=== PATIENT | female | born 1985 | race Caucasian/White ===

== ENCOUNTER 2019-05-03 15:24 | Emergency (ER) | payer BC ==
--- OUTSIDE RECORDS SUMMARY | 2019-05-03 17:21 | XMS REPORT | Continuity of Care Document ---
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 Allergies, Adverse Reactions, Alerts Description No Known Drug Allergies Medications Active Medications SIG Qnty Indications Ordering Provider Date Pantoprazole Sodium 1 by mouth every Unknown 40mg day Solution Rec Ibuprofen 3 tabs by mouth Unknown 200mg Tablets in A.M and as needed History Medications Antibiotic (Unknown) taking 4 times Joseph Coombs DO 01/01/2019 - daily FACC 04/30/2019 Immunizations Description No Information Available Vital Signs Date Vital Result Comment 05/01/2019 10:13am Height 63 inches 5'3" Weight 204.00 lb Heart Rate 84 /min BP Systolic Sitting 116 mmHg LA Large Cuff BP Diastolic Sitting 76 mmHg LA Large Cuff BP Systolic Standing 106 mmHg LA Large Cuff BP Diastolic Standing 82 mmHg LA Large Cuff Respiratory Rate 20 /min Pain Level 0 O2 % BldC Oximetry 97 % BMI (Body Mass Index) 36.1 kg/m2 01/02/2019 9:27am Height 63 inches 5'3" Weight 205.38 lb no shoes Heart Rate 76 /min left radial BP Systolic Sitting 110 mmHg ule lg cuff BP Diastolic Sitting 80 mmHg ule lg cuff BP Systolic Standing 110 mmHg ule lg cuff BP Diastolic Standing 78 mmHg ule lg cuff BMI (Body Mass Index) 36.4 kg/m2 Results Test Acquired Date Facility Test Result H/L Range Note Basic Metabolic 01/16/2019 [facility] Sodium 138 mmol/L Normal 135-145 Panel [address] [place] [address] [phone] Potassium 4.6 mmol/L Normal 3.5-5.0 Chloride 104 mmol/L Normal 101-111 Co2 Carbon Dioxide 30 mmol/L Normal 22-32 Anion Gap 4 mmol/L Normal 2-11 Glucose 69 mg/dL Low 70-100 Blood Urea Nitrogen 12 mg/dL Normal 6-24 Creatinine 0.72 mg/dL Normal 0.51-0.95 BUN/Creatinine Ratio 16.7 Normal 8-20 Calcium 9.2 mg/dL Normal 8.6-10.3 Egfr Non- 93.3 >60 Egfr 112.9 >60 1 Laboratory test 01/16/2019 [facility] Magnesium 2.0 mg/dL Normal 1.9-2.7 [address] [place] [address] [phone] TSH (Thyroid Stim Horm) 1.19 mcIU/mL Normal 0.34-5.60 1 Because ethnic data is not always readily available, this report includes an eGFR for both -Americans and non- Americans. The National Kidney Disease Education Program (NKDEP) does not endorse the use of the MDRD equation for patients that are not between the ages of 18 and 70, are , have extremes of body size, muscle mass, or nutritional status, or are non- or non-. According to the National Kidney Foundation, irrespective of diagnosis, the stage of the disease is based on the level of kidney function: Stage Description GFR(mL/min/1.73 m(2)) 1 Kidney damage with normal or decreased GFR 90 2 Kidney damage with mild decrease in GFR 60-89 3 Moderate decrease in GFR 30-59 4 Severe decrease in GFR 15-29 5 Kidney failure <15 (or dialysis) Procedures Date Code Description Status 01/29/2019 73111 ECHO Transthoracic, Real-Time 2D With Doppler And Color Completed Flow 01/02/2019 42291 EKG Tracing & Interpretation Completed Medical Devices Description No Information Available Encounters Type Date Location Provider Dx Diagnosis Office Visit 01/02/2019 Cardiology Services Joseph Coombs, R00.2 Palpitations 9:40a [facility] [place] DO FACC R42 Dizziness and giddiness R06.02 Shortness of breath Assessments Date Code Description Provider 05/01/2019 I49.3 Ventricular premature depolarization Joseph Coombs, DO FACC 01/29/2019 R06.02 Shortness of breath Joseph Coombs, DO FAC 01/29/2019 R06.02 Shortness of breath Traveling ECHO 2 01/02/2019 R00.2 Palpitations Joseph Coombs, DO FAC 01/02/2019 R42 Dizziness and giddiness Joseph Coombs, DO FAC 01/02/2019 R06.02 Shortness of breath Joseph Coombs, DO [facility] Plan of Treatment Future Appointment(s):06/24/2019 10:00 am - Melchor Lai M.D. at [place] [facility]05/01/2019 - Joseph Coombs, DO FACCI49.3 Ventricular premature depolarizationFollow up:PRN Functional Status Description No Information Available Mental Status Description No Information Available Referrals Description No Information Available
[2019-05-03 17:30] VITALS: BP 126/78
--- NOTE | 2019-05-03 17:46 | UC ---
Throat Pain/Nasal Alexis HPI - HPI Summary HPI Summary: 33-year-old female presents with complaints of one week history of sore throat with mild nasal congestion, postnasal drip, bilateral ear pain, and occasional nonproductive cough. Spouse has been sick with similar symptoms. Denies fever , chills, dysphagia, chest pain, shortness of breath, abdominal pain, nausea, vomiting, or diarrhea. - History of Current Complaint Chief Complaint: UCGeneralIllness Stated Complaint: SORE THROAT Time Seen by Provider: 05/03/19 17:14 Hx Obtained From: Patient Hx Last Menstrual Period: 05/03/18 Pain Intensity: 4 - Allergies/Home Medications Allergies/Adverse Reactions: Allergies Allergy/AdvReac Type Severity Reaction Status Date / Time No Known Allergies Allergy Verified 05/03/19 17:30 Home Medications: Home Medications Ibuprofen 600 mg PO DAILY 05/03/19 [History Confirmed 05/03/19] Pantoprazole Sodium [Protonix] 20 mg PO DAILY 05/03/19 [History Confirmed ] PMH/Surg Hx/FS Hx/Imm Hx Previously Healthy: Yes GI/ History: Gastroesophageal Reflux - Surgical History Surgical History: Yes Surgery Procedure, Year, and Place: C SECTION - Family History Known Family History: Positive: Non-Contributory - Social History Occupation: Employed Full-time Lives: With Family Alcohol Use: Rare Substance Use Type: None Smoking Status (MU): Never Smoked Tobacco Review of Systems All Other Systems Reviewed And Are Negative: Yes Constitutional: Negative: Fever, Chills Skin: Negative: Rash Eyes: Negative: Drainage, Eye Redness ENT: Positive: Sore Throat, Ear Ache, Nasal Discharge, Sinus Congestion. Negative: Sinus Pain/Tenderness Respiratory: Positive: Cough. Negative: Shortness Of Breath Cardiovascular: Negative: Palpitations, Chest Pain Gastrointestinal: Negative: Abdominal Pain, Vomiting, Diarrhea, Nausea Genitourinary: Positive: Negative Musculoskeletal: Positive: Negative Neurological: Positive: Negative Is Patient Immunocompromised?: No Physical Exam - Summary Physical Exam Summary: GENERAL APPEARANCE: Well developed, well nourished, alert and cooperative, and appears to be in no acute distress. EYES: Conjunctiva clear. No drainage. EARS: External auditory canals and tympanic membranes clear, hearing grossly intact. NOSE: Mild nasal congestion. No nasal discharge. THROAT: Pharyngeal erythema. No tonsilar inflammation, swelling, exudate, or lesions. Uvula midline. NECK: Neck supple, non-tender without lymphadenopathy. CARDIAC: Normal S1 and S2. No S3, S4 or murmurs. Rhythm is regular. There is no peripheral edema, cyanosis or pallor. Extremities are warm and well perfused. Capillary refill is less than 2 seconds. Peripheral pulses intact. LUNGS: Clear to auscultation without rales, rhonchi, wheezing or diminished breath sounds. ABDOMEN: Positive bowel sounds. Soft, nondistended, nontender. No guarding or rebound. No masses or hepatosplenomegally. MUSKULOSKELETAL: ROM intact to all extremities. No joint erythema or tenderness. Normal muscular development. Normal gait. SKIN: Skin normal color, texture and turgor with no lesions or eruptions. Triage Information Reviewed: Yes Vital Signs: Initial Vital Signs Temp 97.9 F 05/03/19 17: Pulse 95 05/03/19 17:27 Resp 16 05/03/19 17: BP 126/78 05/03/19 17: Pulse Ox 99 05/03/19 17:27 Vital Signs Reviewed: Yes Throat Pain/Nasal Course/Dx - Course Course Of Treatment: 33-year-old female presents with complaints of one week history of sore throat with mild nasal congestion, postnasal drip, bilateral ear pain, and occasional nonproductive cough. Spouse has been sick with similar symptoms. Denies fever , chills, dysphagia, chest pain, shortness of breath, abdominal pain, nausea, vomiting, or diarrhea. Afebrile. Vital signs stable. Patient had normal TMs, mild nasal congestion, mild pharyngeal erythema without tonsillar swelling or exudate, no cervical lymphadenopathy, clear bilateral breath sounds, and otherwise unremarkable exam. Rapid strep test was negative. Recommending symptomatic treatment for viral upper respiratory infection. She is to follow- up with her primary care provider in 3-5 days if symptoms are not getting better. Anticipatory guidance and warning symptoms reviewed with the patient. Places understanding and agrees with plan of care. - Differential Dx/Diagnosis Differential Diagnosis/HQI/PQRI: Mononucleosis, Pharyngitis, Tonsillitis, URI Provider Diagnosis: URI (upper respiratory infection) Discharge ED - Sign-Out/Discharge Documenting (check all that apply): Patient Departure All imaging exams completed and their final reports reviewed: No Studies - Discharge Plan Condition: Stable Disposition: HOME Patient Education Materials: Upper Respiratory Infection (ED) Referrals: Shaka Richey MD [Primary Care Provider] - 3 Days Additional Instructions: The rapid strep test performed in the clinic today was negative. Your history and exam are consistent with a viral upper respiratory infection. Viral infections do not respond to antibiotics and are limited to the treatment of symptoms. Drink plenty of fluids to avoid dehydration especially if you are running any fever. Use a saline rinse kit such as Neti Pot or NeilMed at least twice a day to help thin secretions and promote drainage of the sinuses. Use fluticasone (Flonase) nasal spray 2 sprays each nostril once daily. Take over the counter acetaminophen (Tylenol) or ibuprofen (Advil, Motrin) according to directions as needed for pain or fever. Use salt water gargles several times a day if you have a sore throat. You may also use Chloraseptic spray or Cepacol lonzenges according to directions which contain a numbing medication and can provide some temporary relief from your sore throat. Follow up with your primary care provider in 3-5 days if symptoms persist. Seek immediate medical attention in the emergency room if you have fever greater than 100.5 F despite taking acetaminophen or ibuprofen, have chest pain , difficulty breathing, are unable to swallow, or have any worsening of symptoms. - Billing Disposition and Condition Condition: STABLE Disposition: Home
== END 2019-05-03 18:20 | disposition home or self-care (01) ==
LOC: UCCORT 15:24
DX: J06.9 Acute upper respiratory infection, unspecified (principal); K21.9 Gastro-esophageal reflux disease without esophagitis; H92.03 Otalgia, bilateral; Z79.899 Other long term (current) drug therapy
CPT/HCPCS: 87651; 99211; G0463

== ENCOUNTER 2019-07-07 13:18 | Emergency (ER) | payer BC ==
--- OUTSIDE RECORDS SUMMARY | 2019-07-07 16:07 | XMS REPORT | Continuity of Care Document ---
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 Problems Description No Information Available Social History Type Date Description Comments Sex Unknown ETOH Use Occasionally consumes alcohol Recreational Drug Use Denies Drug Use Tobacco Use Start: Unknown Patient has never smoked Smoking Status Reviewed: 06/30/19 Patient has never smoked 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 Allergies, Adverse Reactions, Alerts Description No Known [...] Available Vital Signs Date Vital Result Comment 06/30/2019 9:42am Heart Rate 68 /min Respiratory Rate 16 /min Body Temperature 98.0 F 05/26/2019 10:24am Height 63 inches 5'3" Weight 204.00 lb Heart Rate 84 /min BP Systolic Sitting 124 mmHg BP Diastolic Sitting 80 mmHg Respiratory Rate 16 /min Body Temperature 97.9 F BMI (Body Mass Index) 36.1 kg/m2 Results Test Acquired Date Facility Test Result H/L Range Note Basic Metabolic 01/16/2019 [facility] Sodium 138 mmol/L Normal 135-[address] [place] [address] [phone] Potassium 4.6 mmol/L Normal 3.5-5.0 Chloride 104 mmol/L Normal 101-111 Co2 Carbon Dioxide 30 mmol/L Normal 22-32 Anion Gap 4 mmol/L Normal 2-11 Glucose 69 mg/dL Low 70-100 Blood Urea Nitrogen 12 mg/dL Normal 6-24 Creatinine 0.72 mg/dL Normal 0.51-0.95 BUN/Creatinine Ratio 16.7 Normal 8-20 Calcium 9.2 mg/dL Normal 8.6-10.3 Egfr Non- 93.3 >60 Egfr 112.9 >60 1 Laboratory test 01/16/2019 [facility] Magnesium 2.0 mg/dL Normal 1.9-2.[address] [place] [address] [phone] TSH (Thyroid Stim Horm) 1.19 mcIU/mL Normal [...] dialysis) Procedures Date Code Description Status 01/29/2019 23307 ECHO Transthoracic, Real-Time 2D With Doppler And Color Completed Flow 01/02/2019 72282 EKG Tracing & Interpretation Completed Medical Devices Description No Information Available Encounters Type Date Location Provider Dx Diagnosis Office Visit 05/26/2019 Surgical Karis Patel MD K42.9 Umbilical hernia 10:00a [facility] without obstruction or gangrene Office Visit 05/01/2019 Cardiology Joseph Ayala49.3 Ventricular premature 10:40a [facility] Office Visit 01/02/2019 Cardiology Joseph lBack R00.2 Palpitations 9:40a [facility] R42 Dizziness and giddiness R06.02 Shortness of breath Assessments Date Code Description Provider 06/30/2019 K42.9 Umbilical hernia without obstruction or Karis Patel MD gangrene 05/26/2019 K42.9 Umbilical hernia without obstruction or Karis Patel MD gangrene 05/01/2019 I49.3 Ventricular premature depolarization Josephdisha Grecono, DO [facility] 01/29/2019 R06.02 Shortness of breath Joseph Coombs, DO [facility] 01/29/2019 R06.02 Shortness of breath Traveling ECHO 2 01/02/2019 R00.2 Palpitations Josephdisha Grecono, DO [facility] 01/02/2019 R42 Dizziness and giddiness Josephdisha Coombs, DO [facility] 01/02/2019 R06.02 Shortness of breath Joseph Coombs, DO [facility] Plan of Treatment Future Appointment(s):09/23/2019 10:00 am - Karis Patel MD at [facility]09/10/2019 7:30 am - Karis Patel MD at [facility]08/26/2019 8:30 am - Karis Patel MD at [facility]09/02/2019 9:00 am - Melchor Lai M.D. at [place]2019 - Karis Patel MDK42.9 Umbilical hernia without obstruction or gangrene Functional Status Description No Information Available Mental Status Description No Information Available Referrals Description No Information Available
--- OUTSIDE RECORDS SUMMARY | 2019-07-07 16:07 | XMS REPORT | Continuity of Care Document ---
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 No Information Available Social History Type Date Description Comments Sex Unknown ETOH Use Occasionally consumes alcohol Recreational Drug Use Denies Drug Use Tobacco Use Start: Unknown Patient has never smoked Smoking Status Reviewed: 06/30/19 Patient has never smoked 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 Allergies, Adverse Reactions, Alerts Description No Known Drug Allergies Medications Active Medications SIG Qnty Indications Ordering Provider Date Pantoprazole Sodium 1 by mouth every Unknown 40mg day Solution Rec Ibuprofen 3 tabs by mouth Unknown 200mg Tablets in A.M and as needed Immunizations Description No Information Available Vital Signs [...] Result H/L Range Note Basic Metabolic 01/16/2019 [facility] Sodium 138 mmol/L Normal 135-[address] [place] [address] [phone] Potassium 4.6 mmol/L Normal 3.5-5.0 Chloride 104 mmol/L Normal 101-111 Co2 Carbon Dioxide 30 mmol/L Normal 22-32 Anion Gap 4 mmol/L Normal 2-11 Glucose 69 mg/dL Low 70-100 Blood Urea Nitrogen 12 mg/dL Normal 6-24 Creatinine 0.72 mg/dL Normal 0.51-0.95 BUN/Creatinine Ratio 16.7 Normal 8-20 Calcium 9.2 mg/dL Normal 8.6-10.3 Egfr Non- 93.3 >60 Egfr 112.9 >60 1 Laboratory test 01/16/2019 [facility] Magnesium 2.0 mg/dL Normal 1.9-2.[address] [place] [address] [phone] TSH (Thyroid Stim Horm) 1.19 mcIU/mL Normal [...] dialysis) Procedures Date Code Description Status 01/29/2019 49796 ECHO Transthoracic, Real-Time 2D With Doppler And Color Completed Flow 01/02/2019 59779 EKG Tracing & Interpretation Completed Medical Devices Description No Information Available Encounters Type Date Location Provider Dx Diagnosis Office Visit 06/30/2019 Surgical Karis Patel MD K42.9 Umbilical hernia 9:30a [facility] without obstruction or gangrene Office Visit 05/26/2019 Surgical Karis Patel MD K42.9 Umbilical hernia 10:00a [facility] without obstruction or gangrene Office Visit 05/01/2019 Cardiology Joseph Ayala49.3 Ventricular premature 10:40a [facility] Office Visit 01/02/2019 Cardiology Joseph Black R00.2 Palpitations 9:40a [facility] R42 Dizziness and giddiness R06.02 Shortness of breath Assessments Date Code Description Provider 06/30/2019 K42.9 Umbilical hernia without obstruction or Karis Patel MD gangrene 05/26/2019 K42.9 Umbilical hernia without obstruction or Karis Patel MD gangrene 05/01/2019 I49.3 Ventricular premature depolarization Joseph Coombs, DO [facility] 01/29/2019 R06.02 Shortness of breath Joseph Coombs, DO [facility] 01/29/2019 R06.02 Shortness of breath Traveling ECHO 2 01/02/2019 R00.2 Palpitations Joseph Coombs, DO [facility] 01/02/2019 R42 Dizziness and giddiness Joseph Coombs, DO [facility] 01/02/2019 R06.02 Shortness of breath Joseph SArmand Coombs, [facility] Plan of Treatment Future Appointment(s):09/23/2019 10:00 am - Karis Patel MD at [facility]09/10/2019 7:30 am - Karis Patel MD at [facility]08/26/2019 8:30 am - Karis Patel MD at [facility]09/02/2019 9:00 am - Melchor Lai M.D. at [place] [facility]2019 - Karis Patel MDK42.9 Umbilical hernia without obstruction or gangreneFollow up:We will see you for surgery in August. Please feel free to see me sooner as needed. Functional Status Description No Information Available Mental Status Description No Information Available Referrals Description No Information Available
[2019-07-07 16:16] VITALS: BP 120/68
--- NOTE | 2019-07-07 16:20 | UC ---
Ear Complaint HPI - HPI Summary HPI Summary: 33-year-old female presents with 2 week history of bilateral ear pain and fullness. States left ears worse than right. Reports occasional brief dizziness when pain is at its worst. States today she has started losing her voice. Denies fever, chills, nasal congestion, ear drainage, tinnitus, hearing loss, sore throat, or cough. - History of Current Complaint Chief Complaint: UCEar Stated Complaint: EAR PAIN Time Seen by Provider: 07/07/19 16:17 Hx Obtained From: Patient Hx Last Menstrual Period: 07/02/19 Pain Intensity: 3 - Allergies/Home Medications Allergies/Adverse Reactions: Allergies Allergy/AdvReac Type Severity Reaction Status Date / Time No Known Allergies Allergy Verified 07/07/19 16:16 Home Medications: Home Medications Ibuprofen 600 mg PO DAILY 05/03/19 [History Confirmed 07/07/19] Pantoprazole Sodium [Protonix] 20 mg PO DAILY 05/03/19 [History Confirmed ] Fluticasone NASAL SPRAY 50MCG* [Flonase NASAL SPRAY 50MCG*] 2 spray BOTH NARES DAILY #1 btl 07/07/19 [Rx] PMH/Surg Hx/FS Hx/Imm Hx GI/ History: Gastroesophageal Reflux - Surgical History Surgical History: Yes Surgery Procedure, Year, and Place: C SECTION - Family History Family History: Denies significant family medical history - Social History Occupation: Employed Full-time Lives: With Family Alcohol Use: Rare Substance Use Type: None Smoking Status (MU): Never Smoked Tobacco Review of Systems All Other Systems Reviewed And Are Negative: Yes Constitutional: Negative: Fever, Chills Eyes: Negative: Drainage, Eye Redness ENT: Positive: Ear Ache. Negative: Sore Throat, Nasal Discharge, Sinus Congestion, Sinus Pain/Tenderness Respiratory: Negative: Cough Cardiovascular: Positive: Negative Gastrointestinal: Positive: Negative Genitourinary: Positive: Negative Musculoskeletal: Positive: Negative Neurological/Mental Status: Positive: Negative Is Patient Immunocompromised?: No Physical Exam - Summary Physical Exam Summary: GENERAL APPEARANCE: Well developed, well nourished, alert and cooperative, and appears to be in no acute distress. EYES: Conjunctiva clear. No drainage. EARS: External auditory canals clear, intact bilateral opaque TMs with good cone of light, hearing grossly intact. NOSE: No nasal discharge. THROAT: Pharynx normal. No tonsilar inflammation, swelling, exudate, or lesions. Uvula midline. NECK: Neck supple, non-tender without lymphadenopathy. CARDIAC: Normal S1 and S2. No S3, S4 or murmurs. Rhythm is regular. There is no peripheral edema, cyanosis or pallor. Extremities are warm and well perfused. Capillary refill is less than 2 seconds. Peripheral pulses intact. LUNGS: Clear to auscultation without rales, rhonchi, wheezing or diminished breath sounds. ABDOMEN: Positive bowel sounds. Soft, nondistended, nontender. No guarding or rebound. No masses or hepatosplenomegally. MUSKULOSKELETAL: ROM intact to all extremities. No joint erythema or tenderness. Normal muscular development. Normal gait. SKIN: Skin normal color, texture and turgor with no lesions or eruptions. Triage Information Reviewed: Yes Vital Signs: Initial Vital Signs Temp 97.4 F 07/07/19 16:13 Pulse 66 07/07/19 16:13 Resp 15 07/07/19 16:13 BP 120/68 07/07/19 16:13 Pulse Ox 100 07/07/19 16:13 Vital Signs Reviewed: Yes Ear Complaint Course/Dx - Course Course Of Treatment: 33-year-old female presents with 2 week history of bilateral ear pain and fullness. States left ears worse than right. Reports occasional brief dizziness when pain is at its worst. States today she has started losing her voice. Denies fever, chills, nasal congestion, ear drainage, tinnitus, hearing loss, sore throat, or cough. Afebrile. Vital signs stable. On exam patient and intact, opaque, bilateral TMs with good cone of light and otherwise unremarkable exam. Discussed with patient that her symptoms are likely from a serous otitis secondary to eustachian tube dysfunction and recommending that she start on a fluticasone nasal spray 2 sprays each nostril once daily for 2 weeks. She is to follow-up with her primary care provider in 5-7 days if symptoms are not improving. Anticipatory guidance and warning symptoms were reviewed with the patient. Verbalizes understanding and agrees with plan of care. - Differential Dx/Diagnosis Differential Diagnosis/HQI/PQRI: Otitis Externa, Otitis Media, URI, Other - Serous otitis Provider Diagnosis: Serous otitis media Discharge ED - Sign-Out/Discharge Documenting (check all that apply): Patient Departure All imaging exams completed and their final reports reviewed: No Studies - Discharge Plan Condition: Stable Disposition: HOME Prescriptions: Fluticasone NASAL SPRAY 50MCG* [Flonase NASAL SPRAY 50MCG*] 2 spray BOTH NARES DAILY #1 btl Patient Education Materials: Serous Otitis Media (ED) Referrals: Shaka Richey MD [Primary Care Provider] - 5 Days Additional Instructions: There was no evidence of an ear infection on your exam. I suspect that your symptoms are from a condition called serous otitis which is caused by eustachian tube dysfunction. Start fluticasone nasal spray 2 sprays each nostril once daily for 2 weeks. Take acetaminophen (Tylenol) or ibuprofen (Advil, Motrin) according directions as needed for pain. Follow-up with your primary care provider in 5-7 days if symptoms are not improving. Seek immediate medical attention if you develop fever greater than 100.5 F, have worsening ear pain, loss of hearing, drainage or blood from the ear, or any worsening of symptoms. - Billing Disposition and Condition Condition: STABLE Disposition: Home - Attestation Statements Provider Attestation: This patient was not seen by me. I was available for consult. Chart reviewed. [facility]
== END 2019-07-07 16:40 | disposition home or self-care (01) ==
LOC: UCCORT 13:18
DX: H65.93 Unspecified nonsuppurative otitis media, bilateral (principal); K21.9 Gastro-esophageal reflux disease without esophagitis; Z79.899 Other long term (current) drug therapy
CPT/HCPCS: 99212; G0463